=== PATIENT | female | born 1950 | race Asian ===

== ENCOUNTER 2022-07-28 10:10 | Day surgery (SDC) | payer OTHER ==
[2022-07-27 09:16] VITALS: BMI 24.7
[2022-07-28 12:39] VITALS: PULSE 87; TEMP 97.8
[2022-07-28 13:07] VITALS: BP 105/57; RESP 18
== END 2022-07-28 13:15 | disposition home or self-care (01) ==
LOC: FASU-ENDO 10:10
PROVIDERS: ATTEND Internal Medicine Gastroenterology
PROC: 0DB68ZX Excision of Stomach, Via Natural or Artificial Opening Endoscopic, Diagnostic (ICD-10-PCS; 2022-07-28)
PROC: 0DB48ZX Excision of Esophagogastric Junction, Via Natural or Artificial Opening Endoscopic, Diagnostic (ICD-10-PCS; 2022-07-28)
PROC: 0DB98ZX Excision of Duodenum, Via Natural or Artificial Opening Endoscopic, Diagnostic (ICD-10-PCS; principal; 2022-07-28 11:41)
DX: K29.50 Unspecified chronic gastritis without bleeding (principal); K21.00 Gastro-esophageal reflux disease with esophagitis, without bleeding; R10.13 Epigastric pain
CPT/HCPCS: 82962; 88305-TC; 88342-TC

== ENCOUNTER 2023-01-05 10:08 | Day surgery (SDC) | payer OTHER ==
[2022-12-22 16:11] VITALS: BMI 24.4
[2023-01-05 13:32] VITALS: TEMP 97.3
[2023-01-05 14:04] VITALS: BP 122/65; PULSE 74; RESP 19
== END 2023-01-05 14:04 | disposition home or self-care (01) ==
LOC: FASU-ENDO 10:08
PROVIDERS: ATTEND Internal Medicine Gastroenterology
PROC: 0DBN8ZX Excision of Sigmoid Colon, Via Natural or Artificial Opening Endoscopic, Diagnostic (ICD-10-PCS; principal; 2023-01-05 12:21)
DX: Z12.11 Encounter for screening for malignant neoplasm of colon (principal); K63.5 Polyp of colon; K64.1 Second degree hemorrhoids; K57.30 Diverticulosis of large intestine without perforation or abscess without bleeding
CPT/HCPCS: 82962; 88305-TC

== ENCOUNTER 2023-08-08 13:47 | Emergency (ER) | payer OTHER ==
[2023-08-08 14:01] VITALS: BMI 24.4
[2023-08-08] MEDS ORDERED: ACETAMINOPHEN 325 MG TABLET (FP) ONE (16:45)
[2023-08-08] MEDS: ACETAMINOPHEN 500 MG TABLET (FP) PO ONE (16:49)
[2023-08-09 11:04] VITALS: BP 111/55; PULSE 80; RESP 20; TEMP 97.8
== END 2023-08-09 02:43 | disposition home or self-care (01) ==
LOC: JERFT 13:47 → JER 13:47
DX: M25.552 Pain in left hip (principal); M54.50 Low back pain, unspecified; M79.652 Pain in left thigh; W06.XXXA Fall from bed, initial encounter
CPT/HCPCS: 72100-TC-FY; 73502-TC-LT-FY; 73552-TC-LT-FY; 73700-TC-RT; 99284-25